=== PATIENT | male | born 1980 | race Caucasian/White ===

== ENCOUNTER 2019-06-18 05:09 | Emergency (ER) | payer MEDICAID, MEDICARE ==
[~2019-06-18] VITALS: Ht 170.2 cm; Wt 59.0 kg
[2019-06-18] MEDS ORDERED: ACETAMINOPHEN 500MG TABLET PO ONE (07:00)
[2019-06-18] MEDS ORDERED: PENICILLIN G BENZATHINE 2,400,000 UNITS/4ML SYR IM ONE (07:00)
[2019-06-18 07:48] VITALS: BP 135/85
== END 2019-06-18 08:40 | disposition home or self-care (01) ==
LOC: ER 05:09
DX: S40.011A Contusion of right shoulder, initial encounter (principal); M54.2 Cervicalgia; Y00.XXXA Assault by blunt object, initial encounter; Y93.89 Activity, other specified; Z20.2 Contact with and (suspected) exposure to infections with a predominantly sexual mode of transmission; Y92.89 Other specified places as the place of occurrence of the external cause; R03.0 Elevated blood-pressure reading, without diagnosis of hypertension
CPT/HCPCS: 72040; 73030; 96372; 99284; J0561